=== PATIENT | female | born 1965 | race Caucasian/White ===

== ENCOUNTER → 2024-11-26 15:31 | Outpatient (REF) | payer OTHER, SELFPAY | LOC: RAD 15:31 | PROVIDERS: ATTENDING PHYSICIAN Specialist; FAMILY PHYSICIAN Nurse Practitioner Adult Health | DX: C67.9 Malignant neoplasm of bladder, unspecified (principal) | CPT/HCPCS: 74178; Q9967 ==

== ENCOUNTER 2024-12-03 06:17 | Day surgery (SDC) | payer OTHER, SELFPAY ==
--- NOTE | 2024-11-27 17:14 | PTCARENOTE ---
Abnormal values : WBC 18.3, Platelets 557 reported to Dalia Valdez (Dr. Silva's office). No further orders at this time.
[2024-12-03] VITALS (12 sets, daily range): BP systolic 90–119; BP diastolic 53–69; BMI 33.2
--- NOTE | 2024-12-03 10:56 | W.PN.ADMIT ---
Progress Note - Admit
Progress Note - Admit
pt s/p TURBT of large bladder tumor
admit for CBI
[2024-12-03] MEDS: ZOFRAN 4 MG IV (11:09)
[2024-12-03 11:30] LABS: Hematocrit 38.7 % (37.0-47.0); Hemoglobin 12.9 g/dL (12.0-16.0); Mean Corp Hgb Conc. 33.3 g/dL (33.0-37.0); Mean Corpuscular Volume 93.7 fL (81.0-99.0); Platelet Count 570 10^3/uL (130-400); Red Cell Dist. Width 14.2 % (11.5-14.5)
[2024-12-03 11:52] LABS: Blood Urea Nitrogen 6 mg/dl (7-17); Calcium 8.7 mg/dl (8.4-10.2); Carbon Dioxide 27 mmol/L (22-30); Chloride 103 mmol/L (98-107); Estimated Creatinine Clearance 111 ml/min; Glucose 139 mg/dl (70-99); Potassium 4.3 mmol/L (3.5-5.1); Sodium 137 mmol/L (135-145); eGFR > 60.00
[2024-12-03] MEDS: NSS 1000 IV (14:58)
[2024-12-03] MEDS: NICODERM TRANSDERMAL 21 MG TRANSDERM (14:58)
[2024-12-03] MEDS: VALIUM INJECTION 5 MG IV ×2 (15:15→19:27)
--- NOTE | 2024-12-03 16:04 | PTCARENOTE ---
Pt arrived to [facility] in a bed. Pt arrived with [address] with clear output and CBI infusing. CBI to be clamped at 0000. Thigh high teds/scds on pt. Lungs coarse and diminished throughout. 96% on RA. Admission questions answered. Per
protocol, Dr. Silva notified of MSAS protocol. MSAS protocol initiated. Pt oriented to room and call gomez. Bed locked and in lowest position. Care ongoing.
--- NOTE | 2024-12-03 16:12 | RESPNOTE ---
received orders for pt. to use her own CPAP.
pt did not bring her machine from home and declined the use of the hospital CPAP. pt stated that if she stays in the hospital for more than one night, someone will bring her home CPAP
[2024-12-03] MEDS: THIAMINE INJECTION 200 MG IV (19:27)
[2024-12-03] MEDS: MACROBID 100 MG PO (19:27)
[2024-12-03] MEDS: COLACE 100 MG PO (19:27)
[2024-12-03] MEDS: TYLENOL 1000 MG PO (20:53)
[2024-12-04] MEDS: VALIUM INJECTION 5 MG IV (02:51)
[2024-12-04] MEDS: NSS 1000 IV (02:51)
[2024-12-04 03:00] VITALS: BP 105/65
--- NOTE | 2024-12-04 06:53 | W.PN.URO.CBU ---
Today's Communication / Plan
-
golden out- then discharge
Assessment / Plan
-
s/p TURBT
golden out for TOV- likely discharge today
reviewed plan with pt- will call with pathology and then finalize treatment options/plan
Diagnosis
-
Date of Service: December 04, 2024
-
Patient Diagnosis:
bladder cancer
Post Op Day:
TURBT 12/03
Subjective
-
stable overnight
urine clear
Objective
-
Vital Signs
Temp Pulse Resp BP Pulse Ox
97.9 F 77 16 105/65 96
12/04/24 03:00 12/04/24 03:00 12/04/24 03:00 12/04/24 03:00 12/04/24 03:00
Intake and Output
12/02/24 12/03/24 12/04/24
06:59 06:59 06:59
Intake Total 3020 / 3020
Output Total 2500 / 2500
Balance 520 / 520
Intake:
Oral fluids 0 / 192
IV fluids (Total) 1100 / 1100
normosol 100 / 100
Output:
True Urine Output from CBI 2500 / 2500
Review of Systems
-
Constitutional: Fatigue
Respiratory: No Symptoms
Cardiac: No Symptoms
Abdomen/GI: No Symptoms
Physical Exam
-
General - no acute distress
Abdomen - soft, non-tender
Genitalia - fley in place- urine clear off cbi
Skin - warm & dry with no rash
Neuro - AOx3, no motor deficits
Extremities - no clubbing, no cyanosis, no edema
[2024-12-04 07:00] VITALS: BP 114/68
[2024-12-04 07:31] LABS: Hematocrit 34.0 % (37.0-47.0); Hemoglobin 11.5 g/dL (12.0-16.0); Mean Corpuscular Volume 92.4 fL (81.0-99.0)
[2024-12-04 07:32] LABS: Mean Corp Hgb Conc. 33.8 g/dL (33.0-37.0); Platelet Count 529 10^3/uL (130-400); Red Cell Dist. Width 13.9 % (11.5-14.5)
[2024-12-04 08:03] LABS: Blood Urea Nitrogen 6 mg/dl (7-17); Calcium 8.8 mg/dl (8.4-10.2); Carbon Dioxide 25 mmol/L (22-30); Chloride 109 mmol/L (98-107); Estimated Creatinine Clearance 111 ml/min; Glucose 121 mg/dl (70-99); Potassium 4.1 mmol/L (3.5-5.1); Sodium 137 mmol/L (135-145); eGFR > 60.00
[2024-12-04] MEDS: FOLVITE 1 MG PO (08:13)
[2024-12-04] MEDS: LEXAPRO 20 MG PO (08:14)
[2024-12-04] MEDS: COLACE 100 MG PO (08:14)
[2024-12-04] MEDS: VITAMIN D3 (cholecalciferol) 25 MCG PO (08:14)
[2024-12-04] MEDS: MACROBID 100 MG PO (08:14)
[2024-12-04] MEDS: NICODERM TRANSDERMAL 21 MG TRANSDERM (08:14)
[2024-12-04] MEDS: VITAMIN C 500 MG PO (08:14)
[2024-12-04] MEDS: THIAMINE INJECTION 200 MG IV (08:14)
[2024-12-04] MEDS: THERAGRAN 1 TABLET PO (08:14)
[2024-12-04] MEDS: DIOVAN 160 MG PO (08:15)
--- NOTE | 2024-12-04 09:01 | CM ---
Cm met with patient in room. Patent confirmed demographics. Patient lives independently. Patient has a history of VN, but is currently not on service. Patient does not have a SNF history. Patient uses a CPAP, but did not know what company provides
her CPAP.
PLAN: home no needs.
[2024-12-04 11:21] VITALS: BP 110/61
[2024-12-04] MEDS: ULTRAM 50 MG PO (12:15)
[2024-12-04 15:18] VITALS: BP 112/70
== END 2024-12-04 17:57 | disposition home or self-care (01) ==
LOC: SDS 06:17
PROVIDERS: ATTENDING PHYSICIAN Specialist
DX: C67.9 Malignant neoplasm of bladder, unspecified (principal)
CPT/HCPCS: 52240; 80048; 85027; 88307; 93005; 94640

== ENCOUNTER → 2024-12-25 13:10 | Outpatient (REF) | payer OTHER, SELFPAY | LOC: RAD 13:10 | PROVIDERS: ATTENDING PHYSICIAN Urology; FAMILY PHYSICIAN Nurse Practitioner Adult Health | DX: C67.9 Malignant neoplasm of bladder, unspecified (principal) | CPT/HCPCS: 71260; Q9967 ==

== ENCOUNTER → 2025-01-19 10:26 | Outpatient (REF) | payer OTHER, SELFPAY ==
[2025-01-19] VITALS (8 sets, daily range): BP systolic 68–134; BP diastolic 73–83
[2025-01-19] MEDS: STERILE WATER FOR INJECTION 10 ML IV (11:39)
[2025-01-19] MEDS: ROCEPHIN 1000 MG IV (11:39)
== END ==
LOC: RADI 10:26
PROVIDERS: ATTENDING PHYSICIAN Internal Medicine Hematology & Oncology; FAMILY PHYSICIAN Nurse Practitioner Adult Health
DX: C67.1 Malignant neoplasm of dome of bladder (principal)
CPT/HCPCS: 36561; 76937; 77001; 99152; 99153; C1788